=== PATIENT | female | born 1970 | race Caucasian/White ===

== ENCOUNTER 2017-12-11 01:47 | Emergency (ER) | payer MEDICARE ==
[~2017-12-11] VITALS: Ht 167.6 cm; Wt 71.7 kg
[2017-12-11] MEDS ORDERED: COZAAR 50 MG TA50 M2 (02:26)
[2017-12-11] MEDS ORDERED: HYDROCHLOROTH12.5 M1 (02:26)
[2017-12-11] MEDS ORDERED: CLONIDINE0.1 (02:27)
[2017-12-11] MEDS ORDERED: LIPITOR40 MG (02:27)
[2017-12-11] MEDS ORDERED: PLAVIX 75 MG TA75 M1 (02:28)
[2017-12-11] MEDS ORDERED: ESTRADIOL 1 MG T1 M1 (02:28)
[2017-12-11] MEDS ORDERED: VALTREX 500 MG500 MG (02:29)
[2017-12-11] MEDS ORDERED: NORCO 5-325 TA1 EACH PO (02:33)
[2017-12-11 03:07] VITALS: BP 138/82
== END 2017-12-11 03:04 | disposition home or self-care (01) ==
LOC: M.ERS 01:47
DX: M25.561 Pain in right knee (principal); Z88.2 Allergy status to sulfonamides; Z88.8 Allergy status to other drugs, medicaments and biological substances; Z91.012 Allergy to eggs; Z91.040 Latex allergy status